=== PATIENT | female | born 1990 | race African-American/Black ===

== ENCOUNTER 2017-12-06 20:43 | Emergency (ER) | payer OTHER, SELFPAY ==
--- NOTE | 2017-12-06 23:21 | RAD ---
LUMBAR SPINE TWO VIEWS 12/06/17 HISTORY: Trauma. Fall. Back pain. Tailbone pain. FINDINGS/IMPRESSION: No fracture or subluxation is seen in the lumbar spine. There is a questionable fracture involving th e inferior coccyx. POS: [facility]
== END 2017-12-06 23:46 | disposition home or self-care (01) ==
LOC: ERS 20:43
DX: S32.2XXA Fracture of coccyx, initial encounter for closed fracture (principal); W18.30XA Fall on same level, unspecified, initial encounter
CPT/HCPCS: 72100